=== PATIENT | female | born 1980 | race Caucasian/White ===

== ENCOUNTER 2019-01-04 13:54 | Emergency (ER) | payer OTHER ==
[~2019-01-04] VITALS: Ht 162.6 cm; Wt 73.0 kg
[~2019-01-04 13:54] MED LIST: CELEBREX100 MG PO; KETO10TA2 PO; MEDI-MECLIZINE25 MG PO; NORFLEX100MG; ORPH100T PO; SKELAXIN800 MG PO
== END 2019-01-04 18:15 | disposition home or self-care (01) ==
LOC: ER 13:54
DX: K58.8 Other irritable bowel syndrome (principal)

== ENCOUNTER 2019-06-03 12:29 | Emergency (ER) | payer OTHER ==
[~2019-06-03] VITALS: Ht 162.6 cm; Wt 72.1 kg
[2019-06-03] MEDS ORDERED: SUMATRIPTAN PO (12:47)
[2019-06-03] MEDS ORDERED: CLARITIN10 MG PO (17:31)
[2019-06-03] MEDS ORDERED: DOLOGEN CAPLET1 EACH PO (17:31)
[2019-06-03] MEDS ORDERED: TUSNEL LIQUID178 ML PO (17:31)
== END 2019-06-03 17:45 | disposition home or self-care (01) ==
LOC: ER 12:29
DX: B34.9 Viral infection, unspecified (principal)

== ENCOUNTER 2021-06-20 15:52 | Emergency (ER) | payer OTHER ==
[~2021-06-20] VITALS: Ht 162.6 cm; Wt 73.9 kg
[~2021-06-20 15:52] MED LIST changes: +CLARITIN10 MG PO; +DOLOGEN CAPLET1 EACH PO; +SUMATRIPTAN PO; +TUSNEL LIQUID178 ML PO
== END 2021-06-20 17:57 | disposition home or self-care (01) ==
LOC: ER 15:52
DX: T78.40XA Allergy, unspecified, initial encounter (principal); R21 Rash and other nonspecific skin eruption; R51.9 Headache, unspecified

== ENCOUNTER 2021-06-22 04:58 | Emergency (ER) | payer OTHER ==
[~2021-06-22] VITALS: Ht 162.6 cm; Wt 73.9 kg
[2021-06-22] MEDS ORDERED: MEDROL8 MG PO ×2 (07:05→07:07)
[2021-06-22] MEDS ORDERED: BENADRYL25 MG PO ×2 (07:05→07:07)
[2021-06-22] MEDS ORDERED: PEPCID40 MG PO ×2 (07:06→07:07)
== END 2021-06-22 07:26 ==
LOC: ER 04:58
DX: T78.3XXA Angioneurotic edema, initial encounter (principal)

== ENCOUNTER 2022-11-12 21:28 | Emergency (ER) | payer OTHER ==
[~2022-11-12] VITALS: Ht 162.6 cm; Wt 62.1 kg
[~2022-11-12 21:28] MED LIST changes: +BENADRYL25 MG PO; +MEDROL8 MG PO; +PEPCID40 MG PO
[2022-11-12] MEDS ORDERED: DIM (21:43)
== END 2022-11-12 23:57 | disposition home or self-care (01) ==
LOC: ER 21:28
DX: M62.838 Other muscle spasm (principal)